=== PATIENT | male | born 1985 | race Caucasian/White ===

== ENCOUNTER 2016-05-10 07:11 | Day surgery (SDC) | payer OTHER ==
[~2016-05-10] VITALS: Ht 193 cm; Wt 97.1 kg
[~2016-05-10 07:11] MED LIST: ATARAX,VISTARIL25 MG PO; CIPRO500 MG PO; DILAUDID4 MG PO; ENDOCET 5-3251 EACH PO; FLEXERIL10 MG PO; FLOMAX0.4 MG PO; IBUPROFEN800 MG PO; MELOXICAM15 MG PO; MOTRIN600 MG PO; MOTRIN800 MG PO; Motrin PO; NAPROSYN500 MG PO; NAPROXEN500 MG PO; NARCAN4 MG NS; NOHOMEMEDS; OXAYDO5 MG PO; OXYCODONE HCL10 MG PO; OXYCODONE HCL15 MG PO; OXYCODONE HCL5 MG PO; OXYCONTIN15 MG; PERCOCET 10/1 TABLET; PERCOCET 10/1 TABLET PO; PERCOCET 5/31 TABLET PO; PREDNISONE20 MG PO; ROXICODONE5 MG PO; VALIUM10 MG PO; VALIUM5 MG PO; VALTREX50 MG/ML PO; VANCOMYCIN1500 MG/25 IV; VICODIN,LORT1 TABLET PO; ZANTAC150 MG PO; ZOFRAN ODT8 MG PO; ZYVOX600 MG PO
== END 2016-05-10 08:48 | disposition home or self-care (01) ==
LOC: PAIN 07:11 → SDC 07:30 → PAIN 08:48
PROC: 3E0T3BZ Introduction of Anesthetic Agent into Peripheral Nerves and Plexi, Percutaneous Approach (ICD-10-PCS; principal; 2016-05-10)
PROC: 3E0T33Z Introduction of Anti-inflammatory into Peripheral Nerves and Plexi, Percutaneous Approach (ICD-10-PCS; principal; 2016-05-10)
DX: M47.896 Other spondylosis, lumbar region (principal); M54.5 Low back pain; J45.909 Unspecified asthma, uncomplicated
CPT/HCPCS: J1030; J2250; J3010; S0020

== ENCOUNTER 2016-05-17 06:56 | Day surgery (SDC) | payer OTHER ==
[~2016-05-17] VITALS: Ht 193 cm; Wt 97.1 kg
== END 2016-05-17 08:30 | disposition home or self-care (01) ==
LOC: PAIN 06:56 → SDC 07:30 → PAIN 07:30
DX: M47.816 Spondylosis without myelopathy or radiculopathy, lumbar region (principal); M54.5 Low back pain; M79.605 Pain in left leg; J45.909 Unspecified asthma, uncomplicated; I99.9 Unspecified disorder of circulatory system; F17.200 Nicotine dependence, unspecified, uncomplicated; Z88.5 Allergy status to narcotic agent; Z88.0 Allergy status to penicillin
CPT/HCPCS: J1030; J2250; J3010; S0020

== ENCOUNTER 2016-07-12 20:42 | Emergency (ER) | payer OTHER ==
[~2016-07-12] VITALS: Ht 193 cm; Wt 99.4 kg
[2016-07-12] MEDS ORDERED: TORADOL10 MG PO (22:59)
[2016-07-12] MEDS ORDERED: KEFLEX500 MG PO (22:59)
[2016-07-12] MEDS ORDERED: BACTRIM,SEPT1 TABLET PO (22:59)
[2016-07-12 23:40] VITALS: BP 131/75
== END 2016-07-12 23:40 | disposition home or self-care (01) ==
LOC: RME 20:42 → EME 20:42 → RME 23:40
PROC: 0X9C0ZZ Drainage of Left Elbow Region, Open Approach (ICD-10-PCS; principal; 2016-07-12)
DX: L02.414 Cutaneous abscess of left upper limb (principal); L03.114 Cellulitis of left upper limb
CPT/HCPCS: 99281; 99284

== ENCOUNTER 2016-08-16 18:51 | Emergency (ER) | payer OTHER ==
[~2016-08-16] VITALS: Ht 195.6 cm; Wt 101.1 kg
[~2016-08-16 18:51] MED LIST changes: +BACTRIM,SEPT1 TABLET PO; +KEFLEX500 MG PO; +TORADOL10 MG PO
[2016-08-16 19:55] LABS: EOSINOPHIL (%) 1.1 % (0-5); EOSINOPHIL COUNT 0.1 K/uL (0-0.3); HEMATOCRIT 43.7 % (38.0-50.0); IMMATURE GRANULOCYTE (%) 0.3 % (0.0-0.7); INSTRUMENT ABS NEUTROPHIL CT 7.4 K/uL; LYMPHOCYTE COUNT 1.2 K/uL (1.0-2.8); MCH 29.8 PG (29.0-34.0); MCHC 33.2 G/DL (30.0-36.0); MCV 89.9 FL (86-99); MEAN PLAT.VOLUME 10.6 uM^3 (9.0-12.4); MONOCYTE (%) 5.7 % (3-12); MONOCYTE COUNT 0.5 K/uL (0-0.8); NEUTROPHIL (%) 79.8 % (45-76); NEUTROPHIL COUNT 7.4 K/uL (1.8-6.4); PLATELET COUNT 176 K/uL (156-360); RBC DIS.WIDTH-CV 12.4 % (11.8-14.6); RBC DIS.WIDTH-SD 41.1 % (39-53); RED BLOOD COUNT 4.86 M/uL (4.00-5.50); WHITE BLOOD COUNT 9.3 K/uL (4.1-10.2)
[2016-08-16 20:14] LABS: CHLORIDE 106 mEq/L (99-109); POTASSIUM 3.8 mEq/L (3.7-5.4); SODIUM 141 mEq/L (136-147)
[2016-08-16 20:15] LABS: GLUCOSE 84 mg/dL (70-99)
[2016-08-16 20:17] LABS: ANION GAP 11 MEQ/L (2-14)
[2016-08-16 20:19] LABS: GFR ESTIMATE (CALCULATED) > 59 mL/min/
[2016-08-16 20:20] LABS: UREA NITROGEN (BUN) 16 mg/dL (9-23)
[2016-08-16 20:26] LABS: ERTH.SED.RATE 21 MM/HR (0-15)
[2016-08-16 20:39] LABS: C-REACTIVE PROTEIN 40.5 MG/L (0-10); SAMPLE HEMOLYSIS CHECK 0; SAMPLE ICTERIC CHECK 0; SAMPLE LIPEMIA CHECK 0
[2016-08-16 21:36] LABS: INFLUENZA A VIRAL ANTIGEN NEGATIVE; INFLUENZA B VIRAL ANTIGEN POSITIVE
[2016-08-17 01:39] LABS: APPEARANCE CLEAR/COLORLESS; RED CELL AREA COUNTED 18; RED CELL COUNT 0 /MM^3 (0-1); RED CELL DILUTION 1; WBC DILUTION 1; WHITE CELL RAW COUNT 0
[2016-08-17 01:40] LABS: CSF EOSINOPHILS ND % (0-25); MONONUCLEAR WBC'S ND % (50-90); POLYNUCLEAR WBC'S ND % (0-3); SPINAL FLD COMMENT NO RBC/WBC SEEN; WBC AREA COUNTED 18; WHITE CELL COUNT 0 /MM^3 (0-5)
[2016-08-17] MEDS ORDERED: TAMIFLU75 MG PO (01:59)
[2016-08-17 02:13] VITALS: BP 98/62
== END 2016-08-17 02:28 | disposition home or self-care (01) ==
LOC: EME 18:51
PROVIDERS: Emergency Medicine
PROC: 009U3ZX Drainage of Spinal Canal, Percutaneous Approach, Diagnostic (ICD-10-PCS; principal; 2016-08-16)
DX: J10.1 Influenza due to other identified influenza virus with other respiratory manifestations (principal); G43.909 Migraine, unspecified, not intractable, without status migrainosus; J45.909 Unspecified asthma, uncomplicated; Z87.442 Personal history of urinary calculi; Z86.14 Personal history of Methicillin resistant Staphylococcus aureus infection; F17.200 Nicotine dependence, unspecified, uncomplicated
CPT/HCPCS: 70450; 71020; 80048; 81003; 82945; 83605; 84157; 85025; 85651; 86140; 87040; 87070; 87205; 87502; 89051; 93005; 99281; 99285; J1100; J1630; J1885; J2270; J2405; J2765; J7030; J7050

== ENCOUNTER 2016-09-17 10:02 | Emergency (ER) | payer OTHER ==
[~2016-09-17] VITALS: Ht 193 cm; Wt 100.0 kg
[~2016-09-17 10:02] MED LIST changes: +TAMIFLU75 MG PO
[2016-09-17] MEDS ORDERED: CEFDINIR300 MG PO (11:22)
[2016-09-17 11:34] VITALS: BP 115/82
== END 2016-09-17 11:35 | disposition home or self-care (01) ==
LOC: EXP 10:02 → EME 10:02 → EXP 11:35
PROC: 0H95XZZ Drainage of Chest Skin, External Approach (ICD-10-PCS; principal; 2016-09-17)
DX: L02.213 Cutaneous abscess of chest wall (principal); F17.200 Nicotine dependence, unspecified, uncomplicated
CPT/HCPCS: 99281; 99284

== ENCOUNTER 2016-09-18 01:23 | Inpatient (IN) | payer OTHER ==
[~2016-09-18] VITALS: Ht 193 cm; Wt 99.2 kg
[~2016-09-18 01:23] MED LIST changes: +CEFDINIR300 MG PO
[2016-09-18 03:08] LABS: EOSINOPHIL (%) 3.7 % (0-5); EOSINOPHIL COUNT 0.4 K/uL (0-0.3); HEMATOCRIT 44.4 % (38.0-50.0); IMMATURE GRANULOCYTE (%) 0.3 % (0.0-0.7); INSTRUMENT ABS NEUTROPHIL CT 6.9 K/uL; LYMPHOCYTE COUNT 1.7 K/uL (1.0-2.8); MCH 30.4 PG (29.0-34.0); MCV 89.3 FL (86-99); MEAN PLAT.VOLUME 11.5 uM^3 (9.0-12.4); MONOCYTE (%) 5.8 % (3-12); MONOCYTE COUNT 0.6 K/uL (0-0.8); NEUTROPHIL COUNT 6.9 K/uL (1.8-6.4); PLATELET COUNT 145 K/uL (156-360); RBC DIS.WIDTH-SD 42.3 % (39-53); RED BLOOD COUNT 4.97 M/uL (4.00-5.50); WHITE BLOOD COUNT 9.5 K/uL (4.1-10.2)
[2016-09-18 03:33] LABS: ALKALINE PHOSPHATASE 51 IU/L (3-129); ANION GAP 10 MEQ/L (2-14); CHLORIDE 101 MEQ/L (99-109); GFR ESTIMATE (CALCULATED) > 59 mL/min/; GLUCOSE 117 mg/dL (70-99); POTASSIUM 3.5 MEQ/L (3.7-5.4); SAMPLE HEMOLYSIS CHECK 0; SAMPLE ICTERIC CHECK 0; SAMPLE LIPEMIA CHECK 0; SODIUM 137 MEQ/L (136-147); TOTAL BILIRUBIN 0.9 MG/DL (0.0-1.0); UREA NITROGEN (BUN) 13 mg/dL (9-23)
[2016-09-18 09:05] VITALS: BP 109/72
== END 2016-09-18 09:12 | disposition left against medical advice (07) | DRG 872 ==
LOC: EME 01:23 → EDOF 08:11
PROVIDERS: Emergency Medicine
DX: A41.9 Sepsis, unspecified organism (principal); L03.313 Cellulitis of chest wall; B95.62 Methicillin resistant Staphylococcus aureus infection as the cause of diseases classified elsewhere; J45.909 Unspecified asthma, uncomplicated; G43.909 Migraine, unspecified, not intractable, without status migrainosus; F17.200 Nicotine dependence, unspecified, uncomplicated; F11.10 Opioid abuse, uncomplicated; Z88.1 Allergy status to other antibiotic agents
CPT/HCPCS: 71260; 80053; 83605; 85025; 85025 91; 87040; 87070; 87075; 87205; 99281; 99285; J0780; J2270; J3370; J7030

== ENCOUNTER 2016-09-25 14:23 | Inpatient (IN) | payer OTHER ==
[~2016-09-25] VITALS: Ht 193 cm; Wt 102.4 kg
[2016-09-25 15:31] LABS: EOSINOPHIL (%) 1.6 % (0-5); EOSINOPHIL COUNT 0.2 K/uL (0-0.3); HEMATOCRIT 42.1 % (38.0-50.0); IMMATURE GRANULOCYTE (%) 0.8 % (0.0-0.7); IMMATURE GRANULOCYTE COUNT 0.1 K/uL; INSTRUMENT ABS NEUTROPHIL CT 9.8 K/uL; LYMPHOCYTE COUNT 0.9 K/uL (1.0-2.8); MCH 30.3 PG (29.0-34.0); MCHC 34.4 G/DL (30.0-36.0); MCV 88.1 FL (86-99); MEAN PLAT.VOLUME 10.3 uM^3 (9.0-12.4); MONOCYTE (%) 5.7 % (3-12); MONOCYTE COUNT 0.7 K/uL (0-0.8); NEUTROPHIL (%) 84.2 % (45-76); NEUTROPHIL COUNT 9.8 K/uL (1.8-6.4); PLATELET COUNT 173 K/uL (156-360); RBC DIS.WIDTH-CV 12.6 % (11.8-14.6); RBC DIS.WIDTH-SD 41.2 % (39-53); RED BLOOD COUNT 4.78 M/uL (4.00-5.50); WHITE BLOOD COUNT 11.6 K/uL (4.1-10.2)
[2016-09-25 15:39] LABS: CHLORIDE 106 mEq/L (99-109); POTASSIUM 3.4 mEq/L (3.7-5.4); SODIUM 137 mEq/L (136-147)
[2016-09-25 15:41] LABS: GLUCOSE 105 mg/dL (70-99)
[2016-09-25 15:43] LABS: ANION GAP 9 MEQ/L (2-14); TOTAL BILIRUBIN 0.6 mg/dL (0.0-1.0)
[2016-09-25 15:45] LABS: ALKALINE PHOSPHATASE 44 IU/L (3-129); GFR ESTIMATE (CALCULATED) > 59 mL/min/
[2016-09-25 15:46] LABS: UREA NITROGEN (BUN) 12 mg/dL (9-23)
[2016-09-25] MEDS ORDERED: CLEOCIN300 MG PO (16:43)
[2016-09-25] MEDS ORDERED: XANAX1 MG PO (16:44)
[2016-09-25] MEDS ORDERED: ADVAIR HFA120 INHALA IH (16:45)
[2016-09-25 17:10] VITALS: BP 126/75
[2016-09-25 19:20] VITALS: BP 109/70
[2016-09-26 04:47] VITALS: BP 118/65
[2016-09-26 07:47] VITALS: BP 106/63
[2016-09-26 07:55] LABS: HEMATOCRIT 36.6 % (38.0-50.0); MCH 29.9 PG (29.0-34.0); MCHC 33.1 G/DL (30.0-36.0); MCV 90.4 FL (86-99); RBC DIS.WIDTH-CV 12.9 % (11.8-14.6); RBC DIS.WIDTH-SD 42.4 % (39-53); RED BLOOD COUNT 4.05 M/uL (4.00-5.50); WHITE BLOOD COUNT 7.2 K/uL (4.1-10.2)
[2016-09-26 08:20] LABS: CHLORIDE 111 mEq/L (99-109); POTASSIUM 3.8 mEq/L (3.7-5.4); SODIUM 139 mEq/L (136-147)
[2016-09-26 08:22] LABS: GLUCOSE 101 mg/dL (70-99)
[2016-09-26 08:23] LABS: ANION GAP 6 MEQ/L (2-14)
[2016-09-26 08:26] LABS: GFR ESTIMATE (CALCULATED) > 59 mL/min/
[2016-09-26 08:27] LABS: UREA NITROGEN (BUN) 12 mg/dL (9-23)
[2016-09-26 09:35] LABS: EOSINOPHIL (%) 3.1 % (0-5); EOSINOPHIL COUNT 0.2 K/uL (0-0.3); IMMATURE GRANULOCYTE (%) 0.3 % (0.0-0.7); INSTRUMENT ABS NEUTROPHIL CT 4.9 K/uL; LYMPHOCYTE COUNT 1.5 K/uL (1.0-2.8); MEAN PLAT.VOLUME 11.6 uM^3 (9.0-12.4); MONOCYTE (%) 7.4 % (3-12); MONOCYTE COUNT 0.5 K/uL (0-0.8); NEUTROPHIL (%) 67.8 % (45-76); NEUTROPHIL COUNT 4.9 K/uL (1.8-6.4); PLAT.SUFFICIENCY DECREASED
[2016-09-26 09:40] LABS: PLATELET COUNT 111 K/uL (156-360)
[2016-09-26 11:23] VITALS: BP 114/79
[2016-09-26 16:10] VITALS: BP 127/82
[2016-09-26 19:40] VITALS: BP 126/80
[2016-09-26 22:46] VITALS: BP 123/80
[2016-09-27] VITALS: BP 123/80
[2016-09-27 05:31] LABS: EOSINOPHIL (%) 6.2 % (0-5); EOSINOPHIL COUNT 0.3 K/uL (0-0.3); HEMATOCRIT 37.1 % (38.0-50.0); IMMATURE GRANULOCYTE (%) 0.2 % (0.0-0.7); INSTRUMENT ABS NEUTROPHIL CT 1.9 K/uL; MCH 30.5 PG (29.0-34.0); MCHC 33.4 G/DL (30.0-36.0); MCV 91.4 FL (86-99); MEAN PLAT.VOLUME 11.3 uM^3 (9.0-12.4); MONOCYTE (%) 10.5 % (3-12); MONOCYTE COUNT 0.5 K/uL (0-0.8); NEUTROPHIL (%) 40.7 % (45-76); NEUTROPHIL COUNT 1.9 K/uL (1.8-6.4); PLATELET COUNT 122 K/uL (156-360); RBC DIS.WIDTH-CV 13.1 % (11.8-14.6); RBC DIS.WIDTH-SD 43.1 % (39-53); RED BLOOD COUNT 4.06 M/uL (4.00-5.50)
[2016-09-27 05:34] LABS: WHITE BLOOD COUNT 4.7 K/uL (4.1-10.2)
[2016-09-27 05:57] LABS: ALKALINE PHOSPHATASE 37 IU/L (3-129); ANION GAP 8 MEQ/L (2-14); CHLORIDE 109 MEQ/L (99-109); GFR ESTIMATE (CALCULATED) > 59 mL/min/; GLUCOSE 106 mg/dL (70-99); POTASSIUM 3.9 MEQ/L (3.7-5.4); SAMPLE HEMOLYSIS CHECK 0; SAMPLE ICTERIC CHECK 0; SAMPLE LIPEMIA CHECK 0; SODIUM 141 MEQ/L (136-147); TOTAL BILIRUBIN 0.3 MG/DL (0.0-1.0); UREA NITROGEN (BUN) 9 mg/dL (9-23)
[2016-09-27 07:28] VITALS: BP 108/76
[2016-09-27 09:29] VITALS: BP 108/76
[2016-09-27] MEDS ORDERED: CLINDAMYCIN HC300 MG PO (13:01)
[2016-09-27] MEDS ORDERED: NICOTINE PATCH1 EAC2 TD (13:01)
== END 2016-09-27 13:31 | disposition home or self-care (01) | DRG 872 ==
LOC: EME 14:23 → 5SOUTH 16:03 → EDOF 16:03 → 4EAST 17:10 → 5SOUTH 09-26 22:39
PROVIDERS: Emergency Medicine; Hospitalist
DX: R65.20 Severe sepsis without septic shock (principal); L02.213 Cutaneous abscess of chest wall; G89.29 Other chronic pain; M54.5 Low back pain; F11.21 Opioid dependence, in remission; F17.210 Nicotine dependence, cigarettes, uncomplicated
CPT/HCPCS: 80048; 80053; 80202; 80306 90; 81003; 83605; 85025; 87040; 94640; 94640 76; 99281; 99285; J0295; J0696; J1650; J1885; J2270; J3370; J7030; J7050

== ENCOUNTER 2017-02-06 12:24 | Emergency (ER) | payer OTHER ==
[~2017-02-06] VITALS: Ht 195.6 cm; Wt 97.8 kg
[~2017-02-06 12:24] MED LIST changes: +ADVAIR HFA120 INHALA IH; +CLEOCIN300 MG PO; +CLINDAMYCIN HC300 MG PO; +NICOTINE PATCH1 EAC2 TD; +XANAX1 MG PO
[2017-02-06] MEDS ORDERED: LIDODERM 5% P1 PATCH TD (15:10)
[2017-02-06] MEDS ORDERED: VALIUM5 MG PO (15:10)
[2017-02-06 15:17] VITALS: BP 118/66
== END 2017-02-06 15:19 | disposition home or self-care (01) ==
LOC: EME 12:24
DX: S39.012A Strain of muscle, fascia and tendon of lower back, initial encounter (principal); M54.42 Lumbago with sciatica, left side; X58.XXXA Exposure to other specified factors, initial encounter; Y99.0 Civilian activity done for income or pay; F17.200 Nicotine dependence, unspecified, uncomplicated
CPT/HCPCS: 72100; 99281; 99284; J1100

== ENCOUNTER 2017-09-19 07:13 | Day surgery (SDC) | payer OTHER ==
[~2017-09-19] VITALS: Ht 193 cm; Wt 99.7 kg
[~2017-09-19 07:13] MED LIST changes: +LIDODERM 5% P1 PATCH TD
[2017-09-19] MEDS ORDERED: OXYCONTIN20 MG PO (07:24)
== END 2017-09-19 08:37 | disposition home or self-care (01) ==
LOC: PAIN 07:13 → SDC 07:30 → PAIN 07:30
PROC: 3E0T3TZ Introduction of Destructive Agent into Peripheral Nerves and Plexi, Percutaneous Approach (ICD-10-PCS; principal; 2017-09-19)
PROC: BR161ZZ Fluoroscopy of Lumbar Facet Joint(s) using Low Osmolar Contrast (ICD-10-PCS; principal; 2017-09-19)
DX: M47.816 Spondylosis without myelopathy or radiculopathy, lumbar region (principal); M51.16 Intervertebral disc disorders with radiculopathy, lumbar region; J45.909 Unspecified asthma, uncomplicated; F17.210 Nicotine dependence, cigarettes, uncomplicated; Z88.0 Allergy status to penicillin; Z79.891 Long term (current) use of opiate analgesic
CPT/HCPCS: J1030; J2250; S0020

== ENCOUNTER 2017-09-26 09:29 | Emergency (ER) | payer OTHER ==
[~2017-09-26] VITALS: Ht 182.9 cm; Wt 100.0 kg
[~2017-09-26 09:29] MED LIST changes: +LEXAPRO5 MG PO; +OXYCONTIN20 MG PO
[2017-09-26 10:09] LABS: BASOPHIL (%) 0.3 % (0-1); EOSINOPHIL (%) 2.8 % (0-5); EOSINOPHIL COUNT 0.3 K/uL (0-0.3); HEMATOCRIT 46.5 % (38.0-50.0); HEMOGLOBIN 15.8 G/DL (12.5-16.6); IMMATURE GRANULOCYTE (%) 0.3 % (0.0-0.7); LYMPHOCYTE (%) 43.8 % (15-42); LYMPHOCYTE COUNT 5.1 K/uL (1.0-2.8); MCH 30.7 PG (29.0-34.0); MCV 90.3 FL (86-99); MONOCYTE (%) 6.3 % (3-12); MONOCYTE COUNT 0.7 K/uL (0-0.8); NEUTROPHIL (%) 46.5 % (45-76); NEUTROPHIL COUNT 5.4 K/uL (1.8-6.4); PLATELET COUNT 244 K/uL (156-360); RBC DIS.WIDTH-CV 13.1 % (11.8-14.6); RED BLOOD COUNT 5.15 M/uL (4.00-5.50); WHITE BLOOD COUNT 11.6 K/uL (4.1-10.2)
[2017-09-26 10:19] LABS: CHLORIDE 105 mEq/L (99-109); POTASSIUM 3.5 mEq/L (3.7-5.4); SODIUM 143 mEq/L (136-147)
[2017-09-26 10:20] LABS: GLUCOSE 97 mg/dL (70-99)
[2017-09-26 10:24] LABS: CREATININE 0.9 mg/dL (0.6-1.3); GFR ESTIMATE (CALCULATED) > 59 mL/min/ (58.99-99999)
[2017-09-26 10:25] LABS: UREA NITROGEN (BUN) 18 mg/dL (9-23)
[2017-09-26 12:52] LABS: APPEARANCE CLEAR ((CLEAR)); BILIRUBIN NEGATIVE; BLOOD LARGE; COLOR YELLOW ((YELLOW)); GLUCOSE (STRIP) NEGATIVE; KETONES 5; LEUKOCYTES NEGATIVE; NITRITE NEGATIVE; PROTEIN (STRIP) 30; SPECIFIC GRAVITY 1.024 (1.000-1.030)
[2017-09-26 12:55] LABS: BACTERIA RARE /HPF; EPITHELIAL CELLS RARE /HPF; MUCUS 4+ /LPF; RED BLOOD CELLS TNTC /HPF (0-5); WHITE BLOOD CELLS 0-5 /HPF (0-5)
[2017-09-26] MEDS ORDERED: ZOFRAN4 MG PO (13:21)
[2017-09-26] MEDS ORDERED: FLOMAX0.4 MG PO (13:21)
[2017-09-26] MEDS ORDERED: TORADOL10 MG PO (13:21)
[2017-09-26 13:35] VITALS: BP 110/70
== END 2017-09-26 13:48 | disposition home or self-care (01) ==
LOC: EME 09:29
PROVIDERS: Emergency Medicine
DX: N13.2 Hydronephrosis with renal and ureteral calculous obstruction (principal); J45.909 Unspecified asthma, uncomplicated; Z87.442 Personal history of urinary calculi; Z88.0 Allergy status to penicillin; F17.200 Nicotine dependence, unspecified, uncomplicated
CPT/HCPCS: 74176; 80048; 81003; 85025; 99281; 99285; J1030; J1885; J2250; J2405; J3010; S0020